=== PATIENT | female | born 2000 | race Caucasian/White ===

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

== ENCOUNTER 2021-05-31 15:34 | Emergency (ER) | payer OTHER ==
[2021-05-31 15:58] VITALS: BP 113/72; PULSE 83; TEMP 97.9; BMI 21.6
[2021-05-31] MEDS ORDERED: METOCLOPRAMIDE HCL INJECTION 10 MG/2 ML VIAL IVPB ONE (17:21)
[2021-05-31] MEDS ORDERED: SODIUM CHLORIDE 1,000 ML IV STA (17:22)
[2021-05-31] MEDS ORDERED: METOCLOPRAMIDE HCL INJECTION 10 MG/2 ML VIAL ONE (18:52)
[2021-05-31 19:06] LABS: EPI CELLS >36 /uL (0-25.1); HYALINE CASTS 10 /uL (0-3.1); URINE APPEARANCE CLOUDY; URINE BACTERIA 1150 /uL (0-1359); URINE BILIRUBIN 1+ (NEGATIVE); URINE COLOR DK YELLOW; URINE GLUCOSE (UA) NEGATIVE (NEGATIVE); URINE KETONE 3+ (NEGATIVE); URINE LEUK ESTERASE 1+ (NEGATIVE); URINE NITRITE NEGATIVE (NEGATIVE); URINE PROTEIN 1+ (NEGATIVE); URINE RBC 21 /uL (0-23.9); URINE WBC 81 /uL (0-25.8)
[2021-05-31] MEDS ORDERED: INDOMETHACIN 50 MG CAPSULE PO ONE (19:07)
[2021-05-31 19:08] LABS: BASO % 0.6 % (0-2.0); EOS % 0.3 % (0-4.5); HEMATOCRIT 39.9 % (32.4-45.2); HEMOGLOBIN 13.8 GM/dL (10.7-15.3); LYMPH % 19.4 % (8-40); MCH 30.9 pg (25.7-33.7); MCHC 34.6 g/dl (32.0-36.0); MEAN CELL VOLUME 89.3 fl (80-96); MEAN PLT VOLUME 7.6 fl (7.5-11.1); MONO % 4.6 % (3.8-10.2); NEUT % 75.1 % (42.8-82.8); PLATELET COUNT 208 10^3/uL (134-434); RBC 4.47 M/mm3 (3.60-5.2); RDW 12.3 % (11.6-15.6); WHITE BLOOD COUNT 9.8 K/mm3 (4.0-10.0)
[2021-05-31] MEDS ORDERED: predniSONE 20 MG TABLET (UD) PO ONE (19:08)
[2021-05-31 19:38] LABS: CALCIUM 9.6 mg/dL (8.5-10.1)
[2021-05-31 19:39] LABS: ALBUMIN 4.3 g/dl (3.4-5.0); BLOOD UREA NITROGEN 12.9 mg/dL (7-18)
[2021-05-31 19:41] LABS: CREATININE 0.7 mg/dL (0.55-1.3)
[2021-05-31 19:43] LABS: TOT PROT 7.6 g/dl (6.4-8.2)
== END 2021-05-31 22:32 ==
LOC: JER 15:34
PROC: 3E033GC Introduction of Other Therapeutic Substance into Peripheral Vein, Percutaneous Approach (ICD-10-PCS; principal; 2021-05-31)
PROC: 3E0337Z Introduction of Electrolytic and Water Balance Substance into Peripheral Vein, Percutaneous Approach (ICD-10-PCS; 2021-05-31)
DX: O21.1 Hyperemesis gravidarum with metabolic disturbance (principal); Z3A.01 Less than 8 weeks gestation of pregnancy
CPT/HCPCS: 36415; 76817-TC; 80053; 81003; 84702; 85025; 87086; 99284-25

== ENCOUNTER 2021-12-29 18:07 | Emergency (ER) | payer OTHER ==
[2021-12-29 18:13] VITALS: TEMP 98; BMI 21.2
[2021-12-29] MEDS ORDERED: SODIUM CHLORIDE 1,000 ML IV STA (20:39)
[2021-12-29] MEDS ORDERED: ONDANSETRON 4 MG/2 ML VIAL IVPUSH ONE (20:42)
[2021-12-29] MEDS ORDERED: ONDANSETRON 4 MG/2 ML VIAL ONE (20:46)
[2021-12-29 21:13] LABS: BASO % 0.4 % (0-2.0); EOS % 0.3 % (0-4.5); HEMATOCRIT 37.1 % (32.4-45.2); HEMOGLOBIN 13.2 GM/dL (10.7-15.3); LYMPH % 20.7 % (8-40); MCHC 35.7 g/dl (32.0-36.0); MEAN CELL VOLUME 86.8 fl (80-96); MEAN PLT VOLUME 7.5 fl (7.5-11.1); MONO % 5.5 % (3.8-10.2); NEUT % 73.1 % (42.8-82.8); PLATELET COUNT 184 10^3/uL (134-434); RBC 4.28 M/mm3 (3.60-5.2); RDW 13.4 % (11.6-15.6); WHITE BLOOD COUNT 8.3 K/mm3 (4.0-10.0)
[2021-12-29 21:21] LABS: INR 1.09 (0.83-1.09); PROTHROMBIN TIME (PATIENT) 12.5 SEC (9.7-13.0)
[2021-12-29 21:23] LABS: ACTIVATED PTT 26.8 SECONDS (25.2-36.5)
[2021-12-29 21:43] LABS: CALCIUM 8.9 mg/dL (8.5-10.1)
[2021-12-29 21:44] LABS: BLOOD UREA NITROGEN 13.1 mg/dL (7-18)
[2021-12-29 21:47] LABS: CREATININE 0.6 mg/dL (0.55-1.3)
[2021-12-29 21:48] LABS: TOT PROT 7.4 g/dl (6.4-8.2)
[2021-12-29 22:17] LABS: EPI CELLS >36 /uL (0-25.1); HYALINE CASTS 4 /uL (0-3.1); PH,URINE 5.5 (5.0-8.0); URINE APPEARANCE CLEAR; URINE BACTERIA 985 /uL (0-1359); URINE BILIRUBIN NEGATIVE (NEGATIVE); URINE COLOR DK YELLOW; URINE GLUCOSE (UA) NEGATIVE (NEGATIVE); URINE KETONE 4+ (NEGATIVE); URINE LEUK ESTERASE NEGATIVE (NEGATIVE); URINE NITRITE NEGATIVE (NEGATIVE); URINE PROTEIN 1+ (NEGATIVE); URINE RBC 14 /uL (0-23.9); URINE WBC 54 /uL (0-25.8)
[2021-12-29 23:10] VITALS: BP 110/74; PULSE 95
== END 2021-12-29 23:10 | disposition home or self-care (01) ==
LOC: JER 18:07
PROC: 3E033NZ Introduction of Analgesics, Hypnotics, Sedatives into Peripheral Vein, Percutaneous Approach (ICD-10-PCS; principal; 2021-12-29)
PROC: 3E0337Z Introduction of Electrolytic and Water Balance Substance into Peripheral Vein, Percutaneous Approach (ICD-10-PCS; 2021-12-29)
DX: O21.1 Hyperemesis gravidarum with metabolic disturbance (principal); Z3A.10 10 weeks gestation of pregnancy
CPT/HCPCS: 36415; 80053; 81003; 85025; 85610; 85730; 86850; 86900; 86901; 99284-25

== ENCOUNTER 2022-06-10 13:23 | Emergency (ER) | payer OTHER ==
[2022-06-10 13:39] VITALS: BP 118/77; RESP 18; TEMP 97.7; BMI 25.4
[2022-06-10] MEDS ORDERED: NEOMYCIN/COLISTIN/HC OTIC SUSP 5 ML BOTTLE AD ONE (14:39)
[2022-06-10] MEDS ORDERED: NEOMYCIN/POLYMYXN/HC OTIC SOLUTION 10 ML BOTTLE AD ONE (14:47)
[2022-06-10] MEDS ORDERED: ONDANSETRON *ODT* 4 MG TABLET SL ONE (14:55)
[2022-06-10] MEDS ORDERED: ACETAMINOPHEN 325 MG TABLET (FP) PO ONE (14:58)
[2022-06-10] MEDS ORDERED: SODIUM CHLORIDE 0.9% 500 ML INFUS.BAG IV ONE (15:01)
[2022-06-10] MEDS ORDERED: ACETAMINOPHEN 1000 MG/100 ML BAG IVPB ONE (15:26)
[2022-06-10] MEDS ORDERED: ONDANSETRON 4 MG/2 ML VIAL IVPUSH ONE (15:26)
[2022-06-10] MEDS ORDERED: ACETAMINOPHEN INJECTION 100 ML IVPB ONE (15:29)
[2022-06-10] MEDS ORDERED: ONDANSETRON 4 MG/2 ML VIAL ONE (15:29)
[2022-06-10 16:45] LABS: EPI CELLS 6 /uL (0-25.1); HYALINE CASTS 0 /uL (0-3.1); PH,URINE 5.5 (5.0-8.0); URINE APPEARANCE CLEAR; URINE BACTERIA 15 /uL (0-1359); URINE BILIRUBIN NEGATIVE (NEGATIVE); URINE COLOR YELLOW; URINE GLUCOSE (UA) NEGATIVE (NEGATIVE); URINE KETONE 4+ (NEGATIVE); URINE LEUK ESTERASE NEGATIVE (NEGATIVE); URINE NITRITE NEGATIVE (NEGATIVE); URINE PROTEIN 1+ (NEGATIVE); URINE RBC 10 /uL (0-23.9); URINE WBC 12 /uL (0-25.8)
[2022-06-10] MEDS ORDERED: DEXTROSE 5%-NORMAL SALINE 1,000 ML IV ONE (17:20)
[2022-06-10 20:21] VITALS: PULSE 99
== END 2022-06-10 20:23 | disposition home or self-care (01) ==
LOC: JERFT 13:23
PROC: 3E0333Z Introduction of Anti-inflammatory into Peripheral Vein, Percutaneous Approach (ICD-10-PCS; principal; 2022-06-10)
PROC: 3E033GC Introduction of Other Therapeutic Substance into Peripheral Vein, Percutaneous Approach (ICD-10-PCS; 2022-06-10)
DX: O26.893 Other specified pregnancy related conditions, third trimester (principal); E86.0 Dehydration; O21.1 Hyperemesis gravidarum with metabolic disturbance
CPT/HCPCS: 81003; 99283-25

== ENCOUNTER 2022-07-29 08:25 | Inpatient (IN) | payer OTHER ==
[2022-07-29] MEDS: ELECTROLYTE-148 SOLN 1,000 ML IV SCH (09:00)
[2022-07-29 09:31] VITALS: RESP 18
[2022-07-29 09:40] VITALS: BMI 26.9
[2022-07-29] MEDS ORDERED: AMPICILLIN SODIUM 2 GM VIAL ONE (09:43)
[2022-07-29] MEDS ORDERED: AMPICILLIN - 2 GM in SODIUM CHLORIDE 100 ML IVPB ONE (10:00)
[2022-07-29 10:03] LABS: BASO % 0.2 % (0-2.0); EOS % 1.6 % (0-4.5); HEMATOCRIT 26.5 % (32.4-45.2); HEMOGLOBIN 8.5 GM/dL (10.7-15.3); LYMPH % 16.2 % (8-40); MCH 24.9 pg (25.7-33.7); MCHC 32.1 g/dl (32.0-36.0); MEAN CELL VOLUME 77.7 fl (80-96); MEAN PLT VOLUME 8.9 fl (7.5-11.1); MONO % 5.6 % (3.8-10.2); NEUT % 76.4 % (42.8-82.8); PLATELET COUNT 166 10^3/uL (134-434); RBC 3.41 M/mm3 (3.60-5.2); RDW 14.9 % (11.6-15.6); WHITE BLOOD COUNT 12.1 K/mm3 (4.0-10.0)
[2022-07-29] MEDS ORDERED: BUTORPHANOL TARTRATE 1 MG/ML VIAL IVPB PRN (10:06)
[2022-07-29] MEDS: PROMETHAZINE HCL 25 MG/1 ML VIAL IVPUSH ONE ×2 (10:15→14:09)
[2022-07-29] MEDS ORDERED: OXYTOCIN 20 UNITS in 0.9% NS 20 UNIT/1,000 ML INFUS.BAG IV ONE (10:35)
[2022-07-29 10:37] LABS: BLOOD UREA NITROGEN 5.5 mg/dL (7-18); CALCIUM 8.3 mg/dL (8.5-10.1)
[2022-07-29 10:40] LABS: CREATININE 0.5 mg/dL (0.55-1.3)
[2022-07-29 11:07] LABS: ACTIVATED PTT 24.7 SECONDS (25.2-36.5)
[2022-07-29 11:10] LABS: INR 1.03 (0.83-1.09); PROTHROMBIN TIME (PATIENT) 11.8 SEC (9.7-13.0)
[2022-07-29] MEDS ORDERED: BENZOCAINE 28 GM HEMORRHOIDAL OINTMENT TP PRN (11:22)
[2022-07-29] MEDS ORDERED: oxyCODONE HCL 5 MG TABLET PO PRN (11:22)
[2022-07-29] MEDS ORDERED: ACETAMINOPHEN 325 MG TABLET (FP) PO PRN (11:22)
[2022-07-29] MEDS ORDERED: METHYLERGONOVINE MALEATE 0.2 MG/1 ML AMP IM PRN (11:22)
[2022-07-29] MEDS ORDERED: BENZOCAINE 20% 57 GM BOTTLE TP PRN (11:22)
[2022-07-29] MEDS ORDERED: BISACODYL 10 MG SUPP.RECT RC PRN (11:22)
[2022-07-29] MEDS ORDERED: WITCH HAZEL 50% (TUCKS) 40 PAD/JAR PAD TP PRN (11:22)
[2022-07-29] MEDS ORDERED: OXYTOCIN 20 UNITS in 0.9% NS 20 UNIT/1,000 ML INFUS.BAG IV SCH (11:30)
[2022-07-29 11:32] LABS: HIV INTERPRETATION NEGATIVE (NEGATIVE)
[2022-07-29] MEDS ORDERED: AMPICILLIN - 1 GM in SODIUM CHLORIDE 100 ML IVPB SCH (12:00)
[2022-07-29] MEDS ORDERED: IBUPROFEN 600 MG TABLET (FP) PO ONE (12:46)
[2022-07-29 13:07] LABS: CORD BASE EXCESS -5.4 mmol/L (0-2); CORD HCO3 18.8 mmHg (20-29); CORD PCO2 33.3 mmHg (30-78); CORD pH 7.369 (7.14-7.44)
[2022-07-29 13:09] LABS: CORD BASE EXCESS -5.9 mmol/L (0-2); CORD HCO3 21.6 mmHg (20-29); CORD PCO2 49.5 mmHg (30-78); CORD pH 7.257 (7.14-7.44)
[2022-07-29] MEDS: IBUPROFEN 600 MG TABLET (FP) PO PRN ×2 (13:19→17:23)
[2022-07-29] MEDS: FERROUS SO4 325 MG TABLET (FP) PO SCH ×2 (14:39→17:23)
[2022-07-30] MEDS: IBUPROFEN 600 MG TABLET (FP) PO PRN ×2 (05:22→15:12)
[2022-07-30 08:52] LABS: BASO % 0.3 % (0-2.0); EOS % 1.3 % (0-4.5); HEMATOCRIT 20.8 % (32.4-45.2); LYMPH % 16.1 % (8-40); MCH 24.9 pg (25.7-33.7); MCHC 32.2 g/dl (32.0-36.0); MEAN CELL VOLUME 77.4 fl (80-96); MEAN PLT VOLUME 8.5 fl (7.5-11.1); NEUT % 76.3 % (42.8-82.8); PLATELET COUNT 148 10^3/uL (134-434); RBC 2.69 M/mm3 (3.60-5.2); WHITE BLOOD COUNT 12.4 K/mm3 (4.0-10.0)
[2022-07-30] MEDS: FERROUS SO4 325 MG TABLET (FP) PO SCH ×3 (08:52→18:22)
[2022-07-30 09:01] LABS: HEMOGLOBIN 6.7 GM/dL (10.7-15.3)
[2022-07-30] MEDS: PRENATAL VITAMINS W/ FOLIC ACID TABLET (FP) PO SCH (09:36)
[2022-07-30] MEDS: ELECTROLYTE-148 SOLN 1,000 ML IV SCH (19:17)
[2022-07-30] MEDS ORDERED: SENNOSIDES/DOCUSATE COMBO (SENNA PLUS) TABLET (UD) PO PRN (22:00)
[2022-07-31] MEDS: IBUPROFEN 600 MG TABLET (FP) PO PRN (06:24)
[2022-07-31 09:04] LABS: HEMATOCRIT 26.3 % (32.4-45.2); HEMOGLOBIN 8.7 GM/dL (10.7-15.3); MCH 26.1 pg (25.7-33.7); MCHC 33.2 g/dl (32.0-36.0); MEAN CELL VOLUME 78.6 fl (80-96); MEAN PLT VOLUME 8.2 fl (7.5-11.1); PLATELET COUNT 172 10^3/uL (134-434); RBC 3.35 M/mm3 (3.60-5.2); WHITE BLOOD COUNT 10.9 K/mm3 (4.0-10.0)
[2022-07-31 09:10] VITALS: BP 113/69; PULSE 76; TEMP 98.1
[2022-07-31] MEDS: PRENATAL VITAMINS W/ FOLIC ACID TABLET (FP) PO SCH (09:53)
[2022-07-31] MEDS: FERROUS SO4 325 MG TABLET (FP) PO SCH ×2 (09:53→13:18)
== END 2022-07-31 13:19 | disposition home or self-care (01) | DRG 560 ==
LOC: JDEL 08:25 → JLDR 08:30 → J3W 14:20
PROVIDERS: ADMIT Obstetrics & Gynecology; ATTEND Obstetrics & Gynecology
PROC: 10E0XZZ Delivery of Products of Conception, External Approach (ICD-10-PCS; principal; 2022-07-29)
PROC: 30233N1 Transfusion of Nonautologous Red Blood Cells into Peripheral Vein, Percutaneous Approach (ICD-10-PCS; 2022-07-30)
DX: O99.02 Anemia complicating childbirth (principal); O72.1 Other immediate postpartum hemorrhage; D62 Acute posthemorrhagic anemia; O99.824 Streptococcus B carrier state complicating childbirth; Z3A.40 40 weeks gestation of pregnancy; Z37.0 Single live birth
CPT/HCPCS: 36415; 36430; 36600; 59409; 80048; 82803; 85025; 85027; 85610; 85730; 86780; 86850; 86900; 86901; 86922; 87389; C9803-CS; P9058; U0003; U0005